=== PATIENT | male | born 1955 | race Caucasian/White ===

== ENCOUNTER 2022-05-22 08:34 | Outpatient (CLI) | payer OTHER | END 2022-05-22 09:03 | disposition home or self-care (01) | LOC: SONOGRAMA 08:34 | DX: N18.5 Chronic kidney disease, stage 5 (principal) ==

== ENCOUNTER 2024-02-25 09:14 | Inpatient (IN) | payer OTHER ==
[~2024-02-25] VITALS: Ht 175.3 cm; Wt 86.2 kg
[2024-02-25] MEDS ORDERED: AVAPRO300 MG PO (09:38)
[2024-02-25] MEDS ORDERED: NORVASC10 MG PO (09:38)
[2024-02-25] MEDS ORDERED: FAMOTIDINE/PF 20 MG/2 ML VIAL IV PUSH STA (10:16)
[2024-02-25 11:13] LABS: MEAN CELL VOLUME 81.9 fL (80.0-100.00); MEAN CORPUSCULAR HGB CONC 35.4 g/dl (32.0-36.0); PLATELET COUNT 219 K/uL (150-450); RED BLOOD COUNT 2.55 M/uL (4.00-6.00); RED CELL DISTRIBUTION WIDTH 14.7 % (11.5-14.5)
[2024-02-25 11:14] LABS: PH,URINE 5.5 (5.0-8.0); URINE APPEARANCE Clear; URINE BILIRRUBIN Negative (NEGATIVE); URINE BLOOD Trace; URINE COLOR Yellow; URINE GLUCOSE Negative (NEGATIVE); URINE KETONE Negative (NEGATIVE); URINE LEUKOCYTE Negative; URINE NITRATE Negative; URINE UROBILINOGEN 0.2 E.U./dl
[2024-02-25 11:19] LABS: URINE BACTERIA 47.8 uL (0.0-1933); URINE EPITHELIAL CELLS 2.4 uL (0.0-38.8)
[2024-02-25 11:27] LABS: URINE CAST 0.15 uL (0.0-1.40); URINE PROTEIN 100 (NEGATIVE); URINE RBC 1.3 uL (0.0-20.8); URINE WBC 1.3 uL (0.0-23.2)
[2024-02-25 11:38] LABS: HEMATOCRIT 20.9 % (39.0-48.0)
[2024-02-25 11:39] LABS: HEMOGLOBIN 7.4 g/dL (13-16.00)
[2024-02-25 12:24] LABS: CALCIUM 7.3 mg/dL (8.5-10.1); GFR 5.72; POTASSIUM 4.68 mEq/L (3.5-5.1)
[2024-02-25 12:40] LABS: CREATININE SERUM 9.28 mg/dL (0.70-1.30)
[2024-02-25] MEDS ORDERED: hydrALAZINE HCL 20 MG VIAL IV PRN (14:45)
[2024-02-25] MEDS ORDERED: NITROGLYCERIN IN 5 % DEXTROSE 50 MG/250 ML BOTTLE IV SCH (14:45)
[2024-02-25 16:55] LABS: ABG PH 7.405 (7.35-7.45); ABG PO2 107.2 mmHg (80-100); ABG pCO2 28.9 mmHg (35-45); BASE EXCESS -5.5 mmol/l; BICARBONATE 17.7 mmol/l (23-25); SaO2 98.1 %; Tco2 18.6 mmol/l
[2024-02-25] MEDS ORDERED: FUROsemide 20 MG/2 ML VIAL IV SCH (17:00)
[2024-02-25] MEDS ORDERED: EPOETIN ALFA-EPBX 10,000 UNIT/ML VIAL (Retacrit) SUBCUTANEO SCH (17:00)
[2024-02-25 17:11] LABS: allen test SATISFACTORY; o2 21 %; puncture site RADIAL RIGHT
[2024-02-25 17:14] VITALS: BP 183/87; O2SAT 97
[2024-02-25 17:59] LABS: ALBUMIN 3.7 gm/dL (3.4-5.0); CALCIUM 7.3 mg/dL (8.5-10.1); GFR 6.13; PHOSPHOROUS 5.2 mg/dL (2.5-4.9); POTASSIUM 4.75 mEq/L (3.5-5.1)
[2024-02-25 18:00] VITALS: BP 174/84; O2SAT 98
[2024-02-25 19:00] VITALS: BP 198/88; O2SAT 98
[2024-02-25 20:00] VITALS: BP 162/70; O2SAT 99
[2024-02-25 20:42] LABS: CREATININE SERUM 8.74 mg/dL (0.70-1.30)
[2024-02-25] MEDS ORDERED: FAMOtidine 20 MG TABLET PO SCH (21:00)
[2024-02-25 22:35] VITALS: BP 178/81; O2SAT 97
[2024-02-25 23:00] VITALS: BP 178/76; O2SAT 97
[2024-02-26] VITALS (14 sets, daily range): BP systolic 151–190; BP diastolic 69–89; O2SAT 95–98
[2024-02-26 07:51] LABS: MEAN CELL VOLUME 82.8 fL (80.0-100.00); MEAN CORPUSCULAR HGB CONC 34.1 g/dl (32.0-36.0); PLATELET COUNT 213 K/uL (150-450); RED BLOOD COUNT 2.67 M/uL (4.00-6.00); RED CELL DISTRIBUTION WIDTH 14.6 % (11.5-14.5)
[2024-02-26 07:57] LABS: HEMATOCRIT 22.1 % (39.0-48.0); HEMOGLOBIN 7.5 g/dL (13-16.00)
[2024-02-26 08:08] LABS: INR 1.1; PARTIAL THROMBOPLASTIN TIME 33.9 SECONDS (22.0-34.0); PROTHROMBIN TIME 11.9 SECONDS (9.0-11.5)
[2024-02-26 08:46] LABS: ALBUMIN 3.3 gm/dL (3.4-5.0); BILIRUBIN TOTAL 0.94 mg/dL (0.3-1.2); CALCIUM 7.5 mg/dL (8.5-10.1); GLOBULINA 3.6 G/DL (2.4-3.5); POTASSIUM 4.06 mEq/L (3.5-5.1); TOTAL PROTEIN 6.9 gm/dL (6.4-8.2)
[2024-02-26 08:50] LABS: GFR 6.19
[2024-02-26 08:51] LABS: CREATININE SERUM 8.66 mg/dL (0.70-1.30); PROSTATIC SPECIFIC ANTIGEN 17.3 NG/ML (0.010-4.00)
[2024-02-26] MEDS ORDERED: SOD FERRIC GLUC COMPLX/SUCROSE 62.5 MG in 0.9 % SODIUM CHLORIDE 50 ML IV SCH (09:00)
[2024-02-26] MEDS ORDERED: FOLIC ACID 1 MG TABLET PO SCH (09:00)
[2024-02-26 09:09] LABS: PH,URINE 5.5 (5.0-8.0); URINE APPEARANCE Clear; URINE BILIRRUBIN Negative (NEGATIVE); URINE BLOOD Negative; URINE COLOR Yellow; URINE GLUCOSE Negative (NEGATIVE); URINE KETONE Negative (NEGATIVE); URINE LEUKOCYTE Negative; URINE NITRATE Negative; URINE UROBILINOGEN 0.2 E.U./dl
[2024-02-26 09:10] LABS: URINE BACTERIA 125.9 uL (0.0-1933); URINE EPITHELIAL CELLS 3.8 uL (0.0-38.8); URINE RBC 2.5 uL (0.0-20.8); URINE WBC 3.2 uL (0.0-23.2)
[2024-02-26 09:18] LABS: URINE CAST 0.15 uL (0.0-1.40); URINE PROTEIN 300 (NEGATIVE)
[2024-02-26 17:24] LABS: MEAN CELL VOLUME 81.6 fL (80.0-100.00); MEAN CORPUSCULAR HGB CONC 35.2 g/dl (32.0-36.0); PLATELET COUNT 233 K/uL (150-450); RED BLOOD COUNT 2.83 M/uL (4.00-6.00); RED CELL DISTRIBUTION WIDTH 14.8 % (11.5-14.5)
[2024-02-26 17:25] LABS: HEMATOCRIT 23.1 % (39.0-48.0); HEMOGLOBIN 8.1 g/dL (13-16.00); MEAN CORPUSCULAR HEMOGLOBIN 28.6 pg (27.00-32.0)
[2024-02-27] VITALS (11 sets, daily range): BP systolic 154–198; BP diastolic 72–94; O2SAT 96–100
[2024-02-27 06:46] LABS: ALBUMIN 3.3 gm/dL (3.4-5.0); BILIRUBIN TOTAL 0.38 mg/dL (0.3-1.2); CALCIUM 7.3 mg/dL (8.5-10.1); GFR 5.9; GLOBULINA 3.7 G/DL (2.4-3.5); POTASSIUM 3.99 mEq/L (3.5-5.1)
[2024-02-27 07:09] LABS: CREATININE SERUM 9.03 mg/dL (0.70-1.30)
[2024-02-27 09:50] LABS: URINE PROT QUANT 24HR 142.2 MG/DL
[2024-02-27] MEDS ORDERED: LIDOCAINE HCL 1% 10ML VIAL PERCUT ONE ×2 (13:00)
[2024-02-27] MEDS ORDERED: HEPARIN SODIUM,PORCINE 5,000 UNITS/ML VIAL SPEPROC ONE (13:00)
[2024-02-28 02:39] VITALS: BP 150/78; O2SAT 97
[2024-02-28 07:30] VITALS: BP 144/67
[2024-02-28 08:24] LABS: ALBUMIN 3.2 gm/dL (3.4-5.0); BILIRUBIN TOTAL 0.38 mg/dL (0.3-1.2); CALCIUM 7.5 mg/dL (8.5-10.1); GFR 9.09; GLOBULINA 3.2 G/DL (2.4-3.5); POTASSIUM 4.56 mEq/L (3.5-5.1); TOTAL PROTEIN 6.4 gm/dL (6.4-8.2)
[2024-02-28 08:35] LABS: CREATININE SERUM 6.19 mg/dL (0.70-1.30)
[2024-02-28] MEDS ORDERED: INDOMETHACIN 75 MG PO SCH (09:28)
[2024-02-28 16:00] VITALS: BP 156/70
[2024-02-29] VITALS: BP 164/81; O2SAT 95
[2024-02-29 05:20] LABS: MEAN CELL VOLUME 83.6 fL (80.0-100.00); MEAN CORPUSCULAR HGB CONC 34.8 g/dl (32.0-36.0); PLATELET COUNT 217 K/uL (150-450); RED BLOOD COUNT 2.45 M/uL (4.00-6.00); RED CELL DISTRIBUTION WIDTH 14.5 % (11.5-14.5)
[2024-02-29 05:34] LABS: HEMATOCRIT 20.5 % (39.0-48.0); MEAN CORPUSCULAR HEMOGLOBIN 28.9 pg (27.00-32.0)
[2024-02-29 05:35] LABS: HEMOGLOBIN 7.1 g/dL (13-16.00)
[2024-02-29 05:44] LABS: ALBUMIN 3.1 gm/dL (3.4-5.0); PHOSPHOROUS 5.4 mg/dL (2.5-4.9); POTASSIUM 4.6 mEq/L (3.5-5.1); URIC ACID 5.4 mg/dL (3.5-8.5)
[2024-02-29 06:19] LABS: CREATININE SERUM 8.17 mg/dL (0.70-1.30); GFR 6.6
[2024-02-29 08:49] VITALS: BP 190/85; O2SAT 99
[2024-02-29 17:07] VITALS: BP 160/80
[2024-03-01 00:08] VITALS: BP 184/76
[2024-03-01 07:52] LABS: ALBUMIN 3.1 gm/dL (3.4-5.0); CALCIUM 7.6 mg/dL (8.5-10.1); CHOL HDL RATIO 2.8 (0-5.0); GFR 9.52; PHOSPHOROUS 4.6 mg/dL (2.5-4.9); POTASSIUM 4.04 mEq/L (3.5-5.1)
[2024-03-01 08:02] LABS: HEMATOCRIT 28.9 % (39.0-48.0); HEMOGLOBIN 10.1 g/dL (13-16.00); MEAN CELL VOLUME 81.8 fL (80.0-100.00); MEAN CORPUSCULAR HEMOGLOBIN 28.7 pg (27.00-32.0); MEAN CORPUSCULAR HGB CONC 35.1 g/dl (32.0-36.0); PLATELET COUNT 255 K/uL (150-450); RED BLOOD COUNT 3.53 M/uL (4.00-6.00); RED CELL DISTRIBUTION WIDTH 15.3 % (11.5-14.5)
[2024-03-01 08:34] VITALS: BP 164/89; O2SAT 96
[2024-03-01 08:50] LABS: CREATININE SERUM 5.95 mg/dL (0.70-1.30)
[2024-03-01] MEDS ORDERED: NIFEDIPINE 30 MG TAB.SA.OSM PO SCH (13:18)
[2024-03-01 19:03] VITALS: BP 160/90
[2024-03-01 22:53] VITALS: BP 174/64; O2SAT 100
[2024-03-02 02:32] VITALS: BP 160/78
[2024-03-02 08:51] VITALS: BP 177/81; O2SAT 99
[2024-03-02 17:22] VITALS: BP 170/90
[2024-03-03 02:19] VITALS: BP 178/79; O2SAT 95
[2024-03-03 08:12] VITALS: BP 176/88
[2024-03-03 16:20] VITALS: BP 173/75; O2SAT 97
[2024-03-03] MEDS ORDERED: hydrALAZINE HCL 10 MG TABLET PO SCH (17:00)
[2024-03-03] MEDS ORDERED: hydrALAZINE HCL 50 MG TABLET PO SCH (17:00)
[2024-03-03 20:00] VITALS: BP 176/81; O2SAT 97
[2024-03-04 02:16] VITALS: BP 168/86; O2SAT 99
[2024-03-04 09:14] VITALS: BP 189/86; O2SAT 100
[2024-03-04] MEDS ORDERED: TUBERCULIN,PURIF.PROT.DERIV. 10 SKIN.TEST SKIN.TEST ID NR (13:00)
[2024-03-04 16:32] VITALS: BP 156/71; O2SAT 95
[2024-03-05 03:04] VITALS: BP 162/74; O2SAT 96
[2024-03-05 08:41] VITALS: BP 176/76; O2SAT 97
[2024-03-05 20:35] VITALS: BP 142/68; O2SAT 97
[2024-03-05 20:36] VITALS: BP 137/69
[2024-03-06 01:08] VITALS: BP 152/72; O2SAT 97
[2024-03-06 08:54] VITALS: BP 157/76; O2SAT 97
[2024-03-06 10:13] LABS: HEMATOCRIT 32.7 % (39.0-48.0); HEMOGLOBIN 11.1 g/dL (13-16.00); MEAN CELL VOLUME 83.7 fL (80.0-100.00); MEAN CORPUSCULAR HEMOGLOBIN 28.5 pg (27.00-32.0); PLATELET COUNT 285 K/uL (150-450); RED CELL DISTRIBUTION WIDTH 15.3 % (11.5-14.5)
[2024-03-06 11:44] LABS: ALBUMIN 3.1 gm/dL (3.4-5.0); CALCIUM 7.8 mg/dL (8.5-10.1); GFR 8.75; PHOSPHOROUS 4.6 mg/dL (2.5-4.9); POTASSIUM 4.23 mEq/L (3.5-5.1)
[2024-03-06 11:49] LABS: CREATININE SERUM 6.4 mg/dL (0.70-1.30)
[2024-03-06 16:25] VITALS: BP 164/78; O2SAT 98
[2024-03-07 03:55] VITALS: BP 160/81; O2SAT 98
[2024-03-07 08:47] VITALS: BP 184/82; O2SAT 97
[2024-03-07] MEDS ORDERED: hydrALAZINE HCL 50 MG TABLET PO SCH (09:00)
[2024-03-07 17:50] VITALS: BP 160/80
[2024-03-08 11:37] VITALS: BP 169/84; O2SAT 93
[2024-03-08 16:48] VITALS: BP 161/77; O2SAT 95
[2024-03-09 01:33] VITALS: BP 166/80; O2SAT 94
[2024-03-09] MEDS ORDERED: NIFEDIPINE 60 MG TAB.SA.OSM PO SCH (09:00)
[2024-03-09 09:22] VITALS: BP 168/84; O2SAT 97
[2024-03-09 17:30] VITALS: BP 165/89; O2SAT 95
[2024-03-10 00:41] VITALS: BP 168/84; O2SAT 97
[2024-03-10 06:23] LABS: HEMATOCRIT 32.6 % (39.0-48.0); HEMOGLOBIN 10.7 g/dL (13-16.00); MEAN CELL VOLUME 83.6 fL (80.0-100.00); MEAN CORPUSCULAR HEMOGLOBIN 27.6 pg (27.00-32.0); PLATELET COUNT 272 K/uL (150-450); RED CELL DISTRIBUTION WIDTH 15.8 % (11.5-14.5)
[2024-03-10 06:56] LABS: CALCIUM 7.9 mg/dL (8.5-10.1); GFR 6.72; MAGNESIUM 2.5 mg/dL (1.8-2.4); PHOSPHOROUS 4.9 mg/dL (2.5-4.9); POTASSIUM 4.39 mEq/L (3.5-5.1)
[2024-03-10 07:44] LABS: CREATININE SERUM 8.04 mg/dL (0.70-1.30)
[2024-03-10] MEDS ORDERED: CARVEDILOL 6.25 MG TABLET PO SCH (09:00)
[2024-03-10 10:10] VITALS: BP 206/79; O2SAT 97
[2024-03-10 13:26] VITALS: BP 182/78
[2024-03-10 17:16] VITALS: BP 160/73; O2SAT 97
[2024-03-11 01:06] VITALS: BP 180/85; O2SAT 97
[2024-03-11 08:35] VITALS: BP 186/85; O2SAT 98
== END 2024-03-11 12:49 | disposition home or self-care (01) | DRG 675 ==
LOC: ER 09:16 → ICU-2 14:50 → MEDI 14:50
PROVIDERS: General Practice; Internal Medicine; Internal Medicine Geriatric Medicine; Internal Medicine Nephrology; Radiology Vascular & Interventional Radiology; ADMIT Internal Medicine; ATTEND Internal Medicine
PROC: 4A12X4Z Monitoring of Cardiac Electrical Activity, External Approach (ICD-10-PCS; 2024-02-25)
PROC: BW4GZZZ Ultrasonography of Pelvic Region (ICD-10-PCS; 2024-02-25)
PROC: BT4JZZZ Ultrasonography of Kidneys and Bladder (ICD-10-PCS; 2024-02-25)
PROC: B246ZZZ Ultrasonography of Right and Left Heart (ICD-10-PCS; 2024-02-25)
PROC: 30233N1 Transfusion of Nonautologous Red Blood Cells into Peripheral Vein, Percutaneous Approach (ICD-10-PCS; 2024-02-26)
PROC: 06HY33Z Insertion of Infusion Device into Lower Vein, Percutaneous Approach (ICD-10-PCS; 2024-02-27)
PROC: 5A1D70Z Performance of Urinary Filtration, Intermittent, Less than 6 Hours Per Day (ICD-10-PCS; 2024-02-27)
PROC: 5A1D70Z Performance of Urinary Filtration, Intermittent, Less than 6 Hours Per Day (ICD-10-PCS; 2024-02-29)
PROC: 5A1D70Z Performance of Urinary Filtration, Intermittent, Less than 6 Hours Per Day (ICD-10-PCS; 2024-03-03)
PROC: 06PYX3Z Removal of Infusion Device from Lower Vein, External Approach (ICD-10-PCS; 2024-03-04)
PROC: B51BYZA Fluoroscopy of Right Lower Extremity Veins using Other Contrast, Guidance (ICD-10-PCS; 2024-03-04)
PROC: B543ZZA Ultrasonography of Right Jugular Veins, Guidance (ICD-10-PCS; 2024-03-04)
PROC: 0JHD3XZ Insertion of Tunneled Vascular Access Device into Right Upper Arm Subcutaneous Tissue and Fascia, Percutaneous Approach (ICD-10-PCS; principal; 2024-03-04 19:00)
PROC: 5A1D70Z Performance of Urinary Filtration, Intermittent, Less than 6 Hours Per Day (ICD-10-PCS; 2024-03-05)
PROC: 5A1D70Z Performance of Urinary Filtration, Intermittent, Less than 6 Hours Per Day (ICD-10-PCS; 2024-03-07)
DX: N18.6 End stage renal disease (principal); E87.79 Other fluid overload; I12.0 Hypertensive chronic kidney disease with stage 5 chronic kidney disease or end stage renal disease; N17.9 Acute kidney failure, unspecified; D64.89 Other specified anemias; D63.1 Anemia in chronic kidney disease; M10.9 Gout, unspecified; R07.89 Other chest pain; Z99.2 Dependence on renal dialysis